=== PATIENT | female | born 1975 | race Caucasian/White ===

== ENCOUNTER 2016-12-09 05:23 | Emergency (ER) | payer MEDICAID, MEDICARE ==
[~2016-12-09] VITALS: Ht 167.6 cm; Wt 73.4 kg
[~2016-12-09 05:23] MED LIST: FENT1PAT9 TD; HYDR4TAB48 PO; METH25VI57; PRED10TA PO; PROM25VI5
[2016-12-09] MEDS ORDERED: HYDROmorphone 1 MG/ML, 1ML ONE ×3 (05:47→08:33)
[2016-12-09] MEDS ORDERED: PROMETHAZINE 25 MG/ML, 1ML ONE (05:48)
[2016-12-09] MEDS ORDERED: SODIUM CHLORIDE FLUSH 10ML SYR IVF ONE (06:00)
[2016-12-09] MEDS ORDERED: PROMETHAZINE 25 MG/ML, 1ML IM ONE (06:00)
[2016-12-09] MEDS ORDERED: SODIUM CHLORIDE 0.9% 1,000ML IVBOLUS ONE (06:00)
[2016-12-09] MEDS: HYDROmorphone 1 MG/ML, 1ML IVPush PRN ×2 (06:04→06:30)
[2016-12-09] MEDS ORDERED: KETOROLAC 30 MG/1 ML ONE (06:32)
[2016-12-09] MEDS ORDERED: KETOROLAC 30 MG/1 ML IVPush ONE (07:00)
[2016-12-09] MEDS ORDERED: DIAZEPAM 5 MG/ML, 2ML ONE (07:03)
[2016-12-09] MEDS ORDERED: DIAZEPAM 5 MG/ML, 2ML IVPush ONE (07:30)
[2016-12-09 08:38] VITALS: BP 94/58
[2016-12-09] MEDS ORDERED: HYDROmorphone 1 MG/ML, 1ML IVPush ONE (09:00)
== END 2016-12-09 08:51 | disposition home or self-care (01) ==
LOC: ED 06:07
DX: M54.5 Low back pain (principal); M06.9 Rheumatoid arthritis, unspecified; Z85.43 Personal history of malignant neoplasm of ovary
CPT/HCPCS: 96361; 96372; 96374; 96375; 96376; 99284; J1170; J1885; J2550; J3360; J7030

== ENCOUNTER 2017-01-02 22:14 | Emergency (ER) | payer MEDICARE ==
[~2017-01-02] VITALS: Ht 167.6 cm; Wt 74.7 kg
[2017-01-02] MEDS ORDERED: predniSONE 50MG TABLET PO STA (22:36)
[2017-01-02] MEDS ORDERED: SODIUM CHLORIDE 0.9% 1,000ML IVBOLUS ONE (23:00)
[2017-01-02] MEDS ORDERED: KETOROLAC 30 MG/1 ML IV ONE (23:00)
[2017-01-02] MEDS ORDERED: KETOROLAC 30 MG/1 ML ONE (23:31)
[2017-01-02] MEDS ORDERED: HYDROmorphone 1 MG/ML, 1ML ONE (23:31)
[2017-01-02 23:39] LABS: BLOOD UREA NITROGEN 15 mg/dL (7-18)
[2017-01-02] MEDS: HYDROmorphone 1 MG/ML, 1ML IVPush PRN (23:48)
[2017-01-02 23:51] LABS: HEMATOCRIT 42.6 % (34.6-47.8); HEMOGLOBIN 14.7 g/dL (11.7-16.4)
[2017-01-02] MEDS ORDERED: PHENERGAN (23:51)
[2017-01-02] MEDS ORDERED: ADAL40PE SC (23:53)
[2017-01-03] MEDS ORDERED: HYDROmorphone 1 MG/ML, 1ML ONE ×2 (00:09→00:58)
[2017-01-03] MEDS: HYDROmorphone 1 MG/ML, 1ML IVPush PRN (00:11)
[2017-01-03] MEDS ORDERED: HYDR4TAB48 PO (00:13)
[2017-01-03] MEDS ORDERED: HYDROmorphone 1 MG/ML, 1ML IVPush PRN (00:30)
[2017-01-03 01:22] VITALS: BP 104/68
== END 2017-01-03 01:29 | disposition home or self-care (01) ==
LOC: ED 01-03 00:37
DX: M06.851 Other specified rheumatoid arthritis, right hip (principal); M06.861 Other specified rheumatoid arthritis, right knee; M06.862 Other specified rheumatoid arthritis, left knee; M06.872 Other specified rheumatoid arthritis, left ankle and foot; M06.871 Other specified rheumatoid arthritis, right ankle and foot; Z90.710 Acquired absence of both cervix and uterus; Z88.0 Allergy status to penicillin; Z88.2 Allergy status to sulfonamides; Z88.6 Allergy status to analgesic agent
CPT/HCPCS: 36415; 80048; 82040; 85025; 85651; 96361; 96374; 96375; 96376; 99284; J1170; J1885; J7030; J7512

== ENCOUNTER 2017-08-02 01:08 | Emergency (ER) | payer MEDICARE ==
[~2017-08-02] VITALS: Ht 167.6 cm; Wt 75.5 kg
[~2017-08-02 01:08] MED LIST changes: +ADAL40PE SC; +PHENERGAN
[2017-08-02] MEDS ORDERED: SODIUM CHLORIDE FLUSH 10ML SYR IVF ONE (01:30)
[2017-08-02] MEDS ORDERED: PROMETHAZINE 25 MG/ML, 1ML IM ONE (01:30)
[2017-08-02] MEDS ORDERED: SODIUM CHLORIDE 0.9% 1,000ML IVBOLUS ONE (01:30)
[2017-08-02] MEDS ORDERED: HYDROmorphone 2 MG/ML, 1ML ONE ×3 (01:54→03:42)
[2017-08-02] MEDS ORDERED: PROMETHAZINE 25 MG/ML, 1ML ONE (01:54)
[2017-08-02] MEDS ORDERED: KETOROLAC 30 MG/1 ML ONE (01:54)
[2017-08-02] MEDS ORDERED: KETOROLAC 30 MG/1 ML IVPush ONE (02:00)
[2017-08-02 02:06] LABS: BASOPHILS # (AUTO) 0.02 x10^3/uL (0-0.1); BASOPHILS % (AUTO) 0 % (0-1); EOSINOPHILS # (AUTO) 0.08 x10^3/uL (0-0.4); EOSINOPHILS % (AUTO) 2 % (1-7); LYMPHOCYTES # (AUTO) 2.13 x10^3/uL (1-3.4); LYMPHOCYTES % (AUTO) 43 % (22-44); MD NO; MEAN CORPUSCULAR HEMOGLOBIN 31.1 pg (27.0-34.8); MEAN CORPUSCULAR VOLUME 91.7 fL (80-100); MEAN PLATELET VOLUME 9.7 fL (7.4-10.4); MONOCYTES # (AUTO) 0.35 x10^3/uL (0.2-0.8); MONOCYTES % (AUTO) 7 % (2-9); NEUTROPHILS # (AUTO) 2.37 x10^3/uL (1.8-6.8); NEUTROPHILS % (AUTO) 48 % (42-75); PLATELET COUNT 148 x10^3/uL (130-400); RED BLOOD COUNT 4.52 x10^6/uL (3.82-5.3); RED CELL DISTRIBUTION WIDTH 12.9 % (9.6-15.2)
[2017-08-02] MEDS: HYDROmorphone 1 MG/ML, 1ML IVPush PRN ×2 (02:10→03:03)
[2017-08-02 02:17] LABS: ALANINE AMINOTRANSFERASE 82 U/L (12-78); ALBUMIN 4.1 g/dL (3.4-5.0); ANION GAP 6 mmol/L (5-15); CHLORIDE 109 mmol/L (98-107); CREATININE 0.93 mg/dL (0.55-1.02)
[2017-08-02 02:19] LABS: ALKALINE PHOSPHATASE 92 U/L (45-117); BILIRUBIN,TOTAL 0.3 mg/dL (0.2-1.0); TOTAL PROTEIN 7.9 g/dL (6.4-8.2)
[2017-08-02] MEDS ORDERED: HYDROmorphone 1 MG/ML, 1ML IV ONE (03:30)
[2017-08-02 04:16] VITALS: BP 105/65
== END 2017-08-02 04:18 | disposition home or self-care (01) ==
LOC: ED 01:48
DX: M06.851 Other specified rheumatoid arthritis, right hip (principal); M06.861 Other specified rheumatoid arthritis, right knee; M06.862 Other specified rheumatoid arthritis, left knee; Z88.5 Allergy status to narcotic agent; Z88.8 Allergy status to other drugs, medicaments and biological substances; Z90.49 Acquired absence of other specified parts of digestive tract; Z85.43 Personal history of malignant neoplasm of ovary
CPT/HCPCS: 36415; 80053; 85025; 96361; 96372; 96374; 96375; 96376; 99285; J1170; J1885; J2550; J7030